=== PATIENT | female | born 1940 | race Caucasian/White ===

== ENCOUNTER 2018-04-13 19:26 | Inpatient (IN) | payer OTHER ==
[2018-04-13 21:34] LABS: ADD MAN DIFF? NO
[2018-04-13 21:35] LABS: WHITE BLOOD COUNT 16.7 10^3/ul (4.8-10.8)
[2018-04-13 21:35] LABS: ABNORMAL IP MESSAGE 1; BASOPHILS % 0.2 % (0.0-2.0); EOSINOPHILS # 0.2 10^3/ul (0.0-0.5); EOSINOPHILS % 1.2 % (0.0-7.0); HEMATOCRIT 30.5 % (37.0-47.0); HEMOGLOBIN 10.3 g/dl (12.0-16.0); LYMPHOCYTES # 0.8 10^3/ul (0.8-2.9); MEAN CORPUSCULAR HEMOGLOBIN 30.7 pg (29.0-33.0); MEAN CORPUSCULAR HGB CONC 33.8 g/dl (32.0-37.0); MEAN CORPUSCULAR VOLUME 90.8 fl (82.0-101.0); MEAN PLATELET VOLUME 10.1 fl (7.4-10.4); MONOCYTE # 1.6 10^3/ul (0.3-0.9); MONOCYTES % 9.8 % (0.0-11.0); NEUTROPHIL # 13.9 10^3/ul (1.6-7.5); NEUTROPHILS % 83.1 % (39.0-77.0); PLATELET COUNT 283 10^3/UL (140-415); RED BLOOD COUNT 3.36 10^6/ul (4.20-5.40); RED CELL DISTRIBUTION WIDTH 13.1 % (11.5-14.5)
[2018-04-13 21:37] LABS: POSITIVE DIFF @See below
[2018-04-13 21:52] LABS: ALANINE AMINOTRANSFERASE 110 IU/L (13-69); ALBUMIN 3.3 g/dl (3.3-4.9); ALBUMIN/GLOBULIN RATIO 0.94; ALKALINE PHOSPHATASE 144 IU/L (42-121); ANION GAP 14 (8-16); ASPARTATE AMINO TRANSFERASE 120 IU/L (15-46); BILIRUBIN,INDIRECT 0.2 mg/dl (0-1.1); BILIRUBIN,TOTAL 0.2 mg/dl (0.2-1.3); BLOOD UREA NITROGEN 13 mg/dl (7-20); CALCIUM 8.4 mg/dl (8.4-10.2); CARBON DIOXIDE 27 mmol/L (21-31); CHLORIDE 98 mmol/L (97-110); CREATININE 0.93 mg/dl (0.44-1.00); GLUCOSE 139 mg/dl (70-220); LIPASE 78 U/L (23-300); POTASSIUM 3.7 mmol/L (3.5-5.1); SODIUM 135 mmol/L (135-144); TOTAL PROTEIN 6.8 g/dl (6.1-8.1)
[2018-04-13 22:09] LABS: URINE BLOOD (Dip) POC 2+ (NEGATIVE); URINE GLUCOSE (Dip) POC Negative (NEGATIVE); URINE KETONES (Dip) POC Negative (NEGATIVE); URINE LEUKOCYTE EST (Dip) POC Trace (NEGATIVE); URINE NITRITE (Dip) POC Negative (NEGATIVE); URINE TOTAL PROTEIN POC 2+ (NEGATIVE)
[2018-04-13] MEDS: SODIUM CHLORIDE 0.9% 1L BAG IV* (22:18)
[2018-04-13] MEDS: ACETAMINOPHEN 325 MG TAB PO (22:18)
[2018-04-13 22:21] LABS: ADD UMIC YES; UR ASCORBIC ACID NEGATIVE (NEGATIVE); UR BACTERIA FEW /HPF (NONE SEEN); UR BILIRUBIN (Dip) NEGATIVE (NEGATIVE); UR BLOOD (Dip) 2+ mg/dL (NEGATIVE); UR CLARITY SLIGHTLY CLOUDY (CLEAR); UR COLOR YELLOW (YELLOW); UR GLUCOSE (Dip) NEGATIVE (NEGATIVE); UR KETONES (Dip) NEGATIVE (NEGATIVE); UR LEUKOCYTE ESTERASE (Dip) TRACE Leu/ul (NEGATIVE); UR NITRITE (Dip) NEGATIVE (NEGATIVE); UR RBC 6 /HPF (0-5); UR TOTAL PROTEIN (Dip) 1+ mg/dl (NEGATIVE); UR UROBILINOGEN (Dip) NEGATIVE (NEGATIVE); UR WBC 7 /HPF (0-5)
[2018-04-13 22:46] LABS: INR 0.99; PROTIME 13.2 Sec (11.9-14.9)
[2018-04-13 22:47] LABS: PARTIAL THROMBOPLASTIN TIME 36.4 Sec (25.0-35.0)
[2018-04-13 22:57] LABS: LACTIC ACID 1.7 mmol/L (0.5-2.0)
[2018-04-13 23:09] LABS: TROPONIN-I < 0.012 ng/ml (0.000-0.120)
[2018-04-13] MEDS: CEFTRIAXONE 1 GM/50 ML (PMX) 50 ML IVPB (23:43)
[2018-04-14] MEDS: AZITHROMYCIN 500MG/NS (PMX) 250 ML IV (00:09)
[2018-04-14 00:33] LABS: LACTIC ACID 0.9 mmol/L (0.5-2.0)
[2018-04-14] MEDS ORDERED: ACETAMINOPHEN 325 MG TAB PO (01:00)
[2018-04-14] MEDS ORDERED: ONDANSETRON 4 MG INJ IV ×2 (01:00→05:30)
[2018-04-14] MEDS ORDERED: HYDROCODONE/APAP (5/325) TAB PO (05:30)
[2018-04-14] MEDS ORDERED: NACL 0.9% 3 ML SYG IV (05:30)
[2018-04-14] MEDS ORDERED: ALBUTEROL/IPRATROPIUM (NEB) 3 ML AMP HHN (05:30)
[2018-04-14 05:45] LABS: ADD MAN DIFF? NO
[2018-04-14 05:57] LABS: WHITE BLOOD COUNT 15.6 10^3/ul (4.8-10.8)
[2018-04-14 05:57] LABS: ABNORMAL IP MESSAGE 1; BASOPHILS % 0.3 % (0.0-2.0); EOSINOPHILS # 0.3 10^3/ul (0.0-0.5); EOSINOPHILS % 2.1 % (0.0-7.0); HEMATOCRIT 30.3 % (37.0-47.0); HEMOGLOBIN 10.2 g/dl (12.0-16.0); LYMPHOCYTES # 0.8 10^3/ul (0.8-2.9); LYMPHOCYTES % 5.2 % (15.0-51.0); MEAN CORPUSCULAR HEMOGLOBIN 30.6 pg (29.0-33.0); MEAN CORPUSCULAR HGB CONC 33.7 g/dl (32.0-37.0); MEAN PLATELET VOLUME 11.7 fl (7.4-10.4); MONOCYTE # 1.8 10^3/ul (0.3-0.9); MONOCYTES % 11.3 % (0.0-11.0); NEUTROPHIL # 12.5 10^3/ul (1.6-7.5); NEUTROPHILS % 80.3 % (39.0-77.0); RED BLOOD COUNT 3.33 10^6/ul (4.20-5.40); RED CELL DISTRIBUTION WIDTH 13.3 % (11.5-14.5)
[2018-04-14 06:15] LABS: LACTIC ACID 1.6 mmol/L (0.5-2.0)
[2018-04-14 06:49] LABS: PLATELET COUNT 206 10^3/UL (140-415); POSITIVE DIFF @See below
[2018-04-14 07:50] LABS: ALANINE AMINOTRANSFERASE 102 IU/L (13-69); ALBUMIN 2.7 g/dl (3.3-4.9); ALBUMIN/GLOBULIN RATIO 0.84; ALKALINE PHOSPHATASE 114 IU/L (42-121); ANION GAP 15 (8-16); ASPARTATE AMINO TRANSFERASE 132 IU/L (15-46); BILIRUBIN,INDIRECT 0.2 mg/dl (0-1.1); BILIRUBIN,TOTAL 0.2 mg/dl (0.2-1.3); BLOOD UREA NITROGEN 10 mg/dl (7-20); CALCIUM 7.7 mg/dl (8.4-10.2); CARBON DIOXIDE 23 mmol/L (21-31); CHLORIDE 107 mmol/L (97-110); CREATININE 0.71 mg/dl (0.44-1.00); GLUCOSE 116 mg/dl (70-220); MAGNESIUM 1.9 mg/dl (1.7-2.5); POTASSIUM 3.5 mmol/L (3.5-5.1); SODIUM 141 mmol/L (135-144); TOTAL PROTEIN 5.9 g/dl (6.1-8.1)
[2018-04-14] MEDS: LEVOFLOXACIN 500MG/D5W (PMX) 100 ML IVPB (08:11)
[2018-04-14] MEDS: ACETAMINOPHEN 325 MG TAB PO ×3 (08:12→23:48)
[2018-04-14] MEDS ORDERED: VANCOMYCIN IV PER PHARMACY XX (21:00)
[2018-04-14] MEDS: VANCOMYCIN 1.25 GM in SOD CHLORIDE 0.9% 250 ML IVPB (23:47)
[2018-04-15 06:34] LABS: ADD MAN DIFF? NO
[2018-04-15 06:35] LABS: WHITE BLOOD COUNT 15.5 10^3/ul (4.8-10.8)
[2018-04-15 06:35] LABS: ABNORMAL IP MESSAGE 1; BASOPHIL # 0.1 10^3/ul (0.0-0.1); BASOPHILS % 0.3 % (0.0-2.0); EOSINOPHILS # 0.4 10^3/ul (0.0-0.5); EOSINOPHILS % 2.8 % (0.0-7.0); HEMATOCRIT 26.8 % (37.0-47.0); HEMOGLOBIN 8.9 g/dl (12.0-16.0); LYMPHOCYTES % 6.5 % (15.0-51.0); MEAN CORPUSCULAR HEMOGLOBIN 30.8 pg (29.0-33.0); MEAN CORPUSCULAR HGB CONC 33.2 g/dl (32.0-37.0); MEAN CORPUSCULAR VOLUME 92.7 fl (82.0-101.0); MEAN PLATELET VOLUME 10.2 fl (7.4-10.4); MONOCYTE # 1.6 10^3/ul (0.3-0.9); NEUTROPHIL # 12.3 10^3/ul (1.6-7.5); NEUTROPHILS % 79.3 % (39.0-77.0); PLATELET COUNT 317 10^3/UL (140-415); RED BLOOD COUNT 2.89 10^6/ul (4.20-5.40); RED CELL DISTRIBUTION WIDTH 13.4 % (11.5-14.5)
[2018-04-15 06:53] LABS: POSITIVE DIFF @See below
[2018-04-15 06:55] LABS: ALANINE AMINOTRANSFERASE 110 IU/L (13-69); ALBUMIN 2.6 g/dl (3.3-4.9); ALBUMIN/GLOBULIN RATIO 0.92; ALKALINE PHOSPHATASE 121 IU/L (42-121); ANION GAP 11 (8-16); ASPARTATE AMINO TRANSFERASE 107 IU/L (15-46); BILIRUBIN,INDIRECT 0.1 mg/dl (0-1.1); BILIRUBIN,TOTAL 0.1 mg/dl (0.2-1.3); BLOOD UREA NITROGEN 8 mg/dl (7-20); CALCIUM 7.8 mg/dl (8.4-10.2); CARBON DIOXIDE 29 mmol/L (21-31); CHLORIDE 107 mmol/L (97-110); CREATININE 0.67 mg/dl (0.44-1.00); GLUCOSE 146 mg/dl (70-220); POTASSIUM 3.4 mmol/L (3.5-5.1); SODIUM 144 mmol/L (135-144); TOTAL PROTEIN 5.4 g/dl (6.1-8.1)
[2018-04-15 07:22] LABS: HEPATITIS B SURFACE ANTIGEN NEGATIVE (NEGATIVE)
[2018-04-15 07:30] LABS: MAGNESIUM 1.8 mg/dl (1.7-2.5)
[2018-04-15 07:30] LABS: PHOSPHORUS 2.8 mg/dl (2.5-4.9)
[2018-04-15 07:40] LABS: HEPATITIS C VIRAL ANTIBODY NEGATIVE (NEGATIVE)
[2018-04-15] MEDS: LEVOFLOXACIN 500MG/D5W (PMX) 100 ML IVPB (08:17)
[2018-04-15] MEDS: POTASSIUM CHLORIDE (SR) 20 MEQ TAB PO (10:13)
[2018-04-15] MEDS: VANCOMYCIN 750 MG in SOD CHLORIDE 0.9% 150 ML IVPB (11:15)
[2018-04-15 11:27] LABS: HEPATITIS B SURFACE ANTIBODY NEGATIVE (NEGATIVE)
[2018-04-15] MEDS ORDERED: KETOROLAC 30 MG INJ IV (12:30)
[2018-04-15] MEDS: KETOROLAC 15 MG INJ IV (13:31)
[2018-04-15] MEDS: CEFEPIME 1GM/50 ML (PMX) 50 ML IVPB ×2 (13:53→22:27)
[2018-04-15] MEDS ORDERED: VANCOMYCIN 1.5 GM in SOD CHLORIDE 0.9% 250 ML IVPB (23:00)
[2018-04-16] MEDS: VANCOMYCIN 750 MG in SOD CHLORIDE 0.9% 150 ML IVPB ×2 (00:17→12:49)
[2018-04-16 05:26] LABS: ADD MAN DIFF? NO
[2018-04-16 05:29] LABS: WHITE BLOOD COUNT 13.1 10^3/ul (4.8-10.8)
[2018-04-16 05:29] LABS: BASOPHILS % 0.3 % (0.0-2.0); EOSINOPHILS # 0.5 10^3/ul (0.0-0.5); EOSINOPHILS % 4.1 % (0.0-7.0); HEMATOCRIT 26.3 % (37.0-47.0); HEMOGLOBIN 8.9 g/dl (12.0-16.0); LYMPHOCYTES # 0.9 10^3/ul (0.8-2.9); LYMPHOCYTES % 7.2 % (15.0-51.0); MEAN CORPUSCULAR HEMOGLOBIN 30.7 pg (29.0-33.0); MEAN CORPUSCULAR HGB CONC 33.8 g/dl (32.0-37.0); MEAN CORPUSCULAR VOLUME 90.7 fl (82.0-101.0); MEAN PLATELET VOLUME 9.9 fl (7.4-10.4); MONOCYTE # 1.2 10^3/ul (0.3-0.9); MONOCYTES % 8.8 % (0.0-11.0); NEUTROPHIL # 10.2 10^3/ul (1.6-7.5); NEUTROPHILS % 78.1 % (39.0-77.0); PLATELET COUNT 343 10^3/UL (140-415); RED CELL DISTRIBUTION WIDTH 13.4 % (11.5-14.5)
[2018-04-16 06:23] LABS: ALBUMIN 2.6 g/dl (3.3-4.9); ANION GAP 9 (8-16); BLOOD UREA NITROGEN 11 mg/dl (7-20); CALCIUM 7.9 mg/dl (8.4-10.2); CARBON DIOXIDE 27 mmol/L (21-31); CHLORIDE 106 mmol/L (97-110); CREATININE 0.68 mg/dl (0.44-1.00); GLUCOSE 111 mg/dl (70-220); MAGNESIUM 1.6 mg/dl (1.7-2.5); PHOSPHORUS 3.6 mg/dl (2.5-4.9); POTASSIUM 3.4 mmol/L (3.5-5.1); SODIUM 139 mmol/L (135-144)
[2018-04-16] MEDS: KETOROLAC 15 MG INJ IV (09:06)
[2018-04-16] MEDS: POTASSIUM CHLORIDE (SR) 20 MEQ TAB PO (09:06)
[2018-04-16] MEDS: CEFEPIME 1GM/50 ML (PMX) 50 ML IVPB ×2 (09:07→20:44)
[2018-04-16] MEDS: MAGNESIUM OXIDE 400 MG TAB PO (09:07)
[2018-04-16 11:04] LABS: VANCOMYCIN,TROUGH 11.2 ug/ml (10.0-20.0)
[2018-04-17] MEDS: KETOROLAC 15 MG INJ IV (01:08)
[2018-04-17] MEDS: VANCOMYCIN 1 GM 250 ML IVPB ×2 (01:08→12:24)
[2018-04-17] MEDS: CEFEPIME 1GM/50 ML (PMX) 50 ML IVPB ×2 (08:23→21:35)
[2018-04-17 08:36] LABS: MAGNESIUM 1.7 mg/dl (1.7-2.5)
[2018-04-17 08:42] LABS: ALANINE AMINOTRANSFERASE 138 IU/L (13-69); ALBUMIN 2.6 g/dl (3.3-4.9); ALBUMIN/GLOBULIN RATIO 0.92; ALKALINE PHOSPHATASE 108 IU/L (42-121); ANION GAP 9 (8-16); ASPARTATE AMINO TRANSFERASE 89 IU/L (15-46); BILIRUBIN,INDIRECT 0.4 mg/dl (0-1.1); BILIRUBIN,TOTAL 0.4 mg/dl (0.2-1.3); BLOOD UREA NITROGEN 12 mg/dl (7-20); CALCIUM 8.2 mg/dl (8.4-10.2); CARBON DIOXIDE 27 mmol/L (21-31); CHLORIDE 110 mmol/L (97-110); CREATININE 0.77 mg/dl (0.44-1.00); GLUCOSE 93 mg/dl (70-220); POTASSIUM 4.4 mmol/L (3.5-5.1); SODIUM 142 mmol/L (135-144); TOTAL PROTEIN 5.4 g/dl (6.1-8.1)
[2018-04-18] MEDS: VANCOMYCIN 1 GM 250 ML IVPB ×2 (01:20→12:39)
[2018-04-18 06:39] LABS: ALBUMIN 2.8 g/dl (3.3-4.9); ANION GAP 8 (8-16); BLOOD UREA NITROGEN 9 mg/dl (7-20); CALCIUM 8.2 mg/dl (8.4-10.2); CARBON DIOXIDE 29 mmol/L (21-31); CHLORIDE 107 mmol/L (97-110); CREATININE 0.74 mg/dl (0.44-1.00); GLUCOSE 106 mg/dl (70-220); MAGNESIUM 1.6 mg/dl (1.7-2.5); PHOSPHORUS 3.6 mg/dl (2.5-4.9); POTASSIUM 4.4 mmol/L (3.5-5.1); SODIUM 140 mmol/L (135-144)
[2018-04-18] MEDS: CEFEPIME 1GM/50 ML (PMX) 50 ML IVPB (08:48)
[2018-04-18] MEDS: MAGNESIUM OXIDE 400 MG TAB PO (09:41)
== END 2018-04-18 19:43 | disposition home or self-care (01) | DRG 871 ==
LOC: E/R 19:26 → PP2 04-14 00:35
DX: A41.9 Sepsis, unspecified organism (principal); G03.9 Meningitis, unspecified; J18.9 Pneumonia, unspecified organism; N39.0 Urinary tract infection, site not specified; R51 Headache; F32.9 Major depressive disorder, single episode, unspecified; W19.XXXA Unspecified fall, initial encounter; Y93.9 Activity, unspecified; Y92.9 Unspecified place or not applicable; Y99.8 Other external cause status
CPT/HCPCS: 36415; 70450; 71045; 71250; 76705; 80053; 80069; 80202; 81001; 81003; 83605; 83690; 83735; 84100; 84484; 85025; 85610; 85730; 86706; 86803; 87040; 87086; 87340; 93005; 96374; 96375; 97161; 99291-25